=== PATIENT | female | born 1990 | race Caucasian/White ===

== ENCOUNTER 2016-12-25 11:04 | Emergency (ER) | payer MEDICAID ==
[2016-12-25 11:13] VITALS: TEMP 98.2
--- NOTE | 2016-12-25 11:22 | EDPHY ---
H & P Stated Complaint: uti symptoms/hematuria HPI/ROS: CHIEF COMPLAINT: Urinary tract infection, hematuria HISTORY OF PRESENT ILLNESS: Patient complains of recurrent urinary tract infection. She has had symptoms since this morning. This involved dysuria and frequent urination. She has seen some flecks of blood in the urine. This is similar to her recent, recurrent urinary tract infections. No flank pain. No nausea or vomiting. No fever or chills. No abdominal pain. No vaginal discharge. No pelvic pain. She did recently finish her menstrual cycle. She has had recurrent UTIs with the past year but has not yet seen the urologist. No other associated complaints or modifying factors. REVIEW OF SYSTEMS: Ten systems reviewed and are negative unless otherwise noted in the HPI PAST MEDICAL HISTORY: Recurrent UTIs SOCIAL HISTORY: Nonsmoker. 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 No wheezing or rhonchi or crackles Cardiovascular: Regular rate and rhythm. No murmur. Gastrointestinal: Abdomen is soft and nontender. No CVA tenderness. No distention, rigidity or guarding. Benign abdominal examination. Back: non-tender, no bony abnormalities Neurological: A&O, nonfocal, normal gait Skin: Warm and dry, no rash Extremities: Nontender, no pedal edema Psychiatric: Mood and affect normal DIFFERENTIAL DIAGNOSES: Including but not limited to UTI, pyelonephritis, renal colic, hematuria, nephrolithiasis, cystitis, urethritis MDM: 11:40 a.m. Acute urinary tract infection without any evidence of pyelonephritis or renal colic. Vital signs are within normal limits. Treat with Macrobid and I provided prescription for Diflucan as she does report antibiotic associated yeast infections. Referred back to primary care physician, and I recommend that she see a urologist due to the recurrent UTIs. She is comfortable with this plan. We discussed return to the emergency department cautions. She is discharged home stable condition. SUPERVISION: This patient was independently evaluated without direct examination by the attending physician. Case was discussed with attending physician. Source: Patient Exam Limitations: No limitations - Personal History LMP (Females 10-55): 1-7 Days Ago Current Tetanus/Diphtheria Vaccine: Yes - Medical/Surgical History Hx Asthma: No Hx Chronic Respiratory Disease: No Hx Diabetes: No Hx Cardiac Disease: No Hx Renal Disease: No Hx Cirrhosis: No Hx Alcoholism: No Hx HIV/AIDS: No Hx Splenectomy or Spleen Trauma: No Other PMH: freq uti/lymes disease - Social History Smoking Status: Former smoker Constitutional: Initial Vital Signs Temperature (C) 98.2 F 12/25/16 11:10 Heart Rate 81 12/25/16 11:10 Respiratory Rate 16 12/25/16 11:10 Blood Pressure 113/83 H 12/25/16 11:10 O2 Sat (%) 95 12/25/16 11:10 O2 Delivery Mode Room Air Allergies/Adverse Reactions: No Known Allergies Allergy (Unverified 12/25/16 11:10) Home Medications: Medication Instructions Recorded Chateal-28 Tablet 12/25/16 Fluconazole [Diflucan (*)] 150 mg PO ONCE #2 tab 12/25/16 Nitrofurantoin Monohyd/M-Cryst 100 mg PO BID #10 capsule 12/25/16 [Macrobid 100 mg Capsule] Medical Decision Making - Data Points Laboratory Results: 12/25/16 11:15 Urine Color PALE YELLOW Urine Appearance HAZY Urine pH 7.0 (5.0-7.5) Ur Specific Benedict < 1.001 L (1.002-1.030) Urine Protein NEGATIVE (NEGATIVE) Urine Ketones NEGATIVE (NEGATIVE) Urine Blood 3+ H (NEGATIVE) Urine Nitrate NEGATIVE (NEGATIVE) Urine Bilirubin NEGATIVE (NEGATIVE) Urine Urobilinogen NEGATIVE EU EU (0.2-1.0) Ur Leukocyte Esterase 3+ H (NEGATIVE) Urine RBC Pending Urine WBC Pending Ur Epithelial Cells Pending Urine Glucose NEGATIVE (NEGATIVE) Departure - Departure Disposition: Home, Routine, Self-Care Clinical Impression: Urinary tract infection Qualifiers: Urinary tract infection type: acute cystitis Hematuria presence: with hematuria Qualified Code(s): N30.01 - Acute cystitis with hematuria Condition: Good Instructions: Urinary Tract Infection in Women (ED) Additional Instructions: 1. Follow up with primary care physician 2. Follow up with Urology due to recurrent UTIs 3. Return here for any worsening pain, flank pain, nausea vomiting, fever Referrals: DIANA MELTON [Other] - As per Instructions Nicolás Sparrow MD [Medical Doctor] - As per Instructions Prescriptions: Fluconazole [Diflucan (*)] 150 mg PO ONCE #2 tab Nitrofurantoin Monohyd/M-Cryst [Macrobid 100 mg Capsule] 100 mg PO BID #10 capsule
[2016-12-25 11:35] LABS: COLOR PALE YELLOW; LEUKOCYTE ESTERASE,URINE 3+ (NEGATIVE); NITRITE,URINE NEGATIVE (NEGATIVE)
[2016-12-25] MEDS ORDERED: IBUPROFEN 600 MG TAB PO ONE (11:40)
[2016-12-25 11:53] LABS: MUCUS TRACE /lpf (NONE-1+); WBC,URINE 25-50 /hpf (0-3)
[2016-12-25 12:22] VITALS: BP 125/79; PULSE 77; RESP 18; O2SAT 99
== END 2016-12-25 12:00 | disposition home or self-care (01) ==
DX: N30.01 Acute cystitis with hematuria (principal); B96.89 Other specified bacterial agents as the cause of diseases classified elsewhere; Z87.891 Personal history of nicotine dependence

== ENCOUNTER 2017-02-12 19:44 | Emergency (ER) | payer MEDICAID ==
[2017-02-12 20:07] VITALS: TEMP 97.3
[2017-02-12] MEDS ORDERED: NS 1,000 ML IV ONE (20:07)
[2017-02-12 20:14] LABS: % IMMATURE GRANULYOCYTES 0.2 % (0.0-1.1); ABSOLUTE IMMATURE GRANULOCYTES 0.03 10^3/uL (0.00-0.10); ADD DIFF? NO; ADD MORPH? NO; ADD SCAN? NO; ATYPICAL LYMPHOCYTE FLAG 10 (0-99); FRAGMENT RBC FLAG 0 (0-99); HEMATOCRIT 44.3 % (38.0-47.0); HEMOGLOBIN 14.8 g/dL (12.6-16.3); LEFT SHIFT FLG 0 (0-99); LIPEMIA HEMOLYSIS FLAG 80 (0-99); MEAN CELL HEMOGLOBIN 30.3 pg (27.9-34.1); MEAN CELL HEMOGLOBIN CONCENTR. 33.4 g/dL (32.4-36.7); MEAN CELL VOLUME 90.6 fL (81.5-99.8); PLATELET CLUMPS FLAG 10 (0-99); PLATELET COUNT 291 10^3/uL (150-400); RED BLOOD CELL COUNT 4.89 10^6/uL (4.18-5.33); RED CELL DISTRIBUTION WIDTH 12.5 % (11.5-15.2)
--- NOTE | 2017-02-12 20:14 | CPEKG ---
Heart Rate: 79 RR Interval: 759 P-R Interval: 160 QRSD Interval: 92 QT Interval: 392 QTC Interval: 450 P Elizabeth: 71 QRS Elizabeth: 85 T Wave Elizabeth: 43 EKG Severity - NORMAL ECG - EKG Impression: SINUS RHYTHM Electronically Signed By: Meir Weiss 12-Feb-2017 20:35:31
--- NOTE | 2017-02-12 20:26 | EDPHY ---
H & P Time Seen by Provider: 02/12/17 19:49 HPI/ROS: CHIEF COMPLAINT: Syncope HISTORY OF PRESENT ILLNESS: 26-year-old female presents to the emergency department by ambulance after having syncopal episode. The patient was diagnosed with strep pharyngitis earlier this week and was started on amoxicillin. She has been taking this antibiotic as prescribed. She still continues to complain of sore throat. She had 1 beer this evening and also smoked marijuana. She had a witnessed syncopal episode by her boyfriend. She did not hit her head. No reported trauma. She has had episodes of syncope in the past. She denies chest pain or difficulty breathing. Denies any other recreational drugs. Denies . Denies abdominal pain. REVIEW OF SYSTEMS: Constitutional: No fever, no chills. Eyes: No double or blurry vision. ENT: No sore throat. Respiratory: No cough, no shortness of breath. Cardiac: No chest pain. Gastrointestinal: No abdominal pain, vomiting or diarrhea. Genitourinary: No dysuria. Musculoskeletal: No neck or back pain. Skin: No rashes. Neurological: No headache. Past Medical/Surgical History: Recently diagnosed with strep on antibiotics Social History: Single Smoking Status: Former smoker Physical Exam: General Appearance: Alert, lethargic. No visible signs of trauma to her head. Eyes: Pupils equal and round and very large, 9 mm. Extraocular motions are all intact. ENT: Mouth: Mucous membranes appear dry Respiratory: No wheezing, rhonchi, or rales, lungs are clear to auscultation. Cardiovascular: Regular rate and rhythm. Gastrointestinal: Abdomen is soft and nontender, no masses, no rebound or guarding, bowel sounds normal. Neurological: unable to determine due to lethargy. Skin: Warm and dry, no rashes. Musculoskeletal: Nontender to palpate along the cervical, thoracic or lumbar spine. Neck is supple. Extremities: Full range of motion and no peripheral edema. Psychiatric: no agitation Constitutional: Initial Vital Signs Temperature (C) 36.3 C 02/12/17 20:05 Heart Rate 86 02/12/17 20:05 Respiratory Rate 14 02/12/17 20:05 Blood Pressure 90/50 L 02/12/17 20:05 O2 Sat (%) 96 02/12/17 20:05 O2 Delivery Mode Room Air Allergies/Adverse Reactions: No Known Allergies Allergy (Unverified 12/25/16 11:10) Home Medications: Medication Instructions Recorded Chateal-28 Tablet 12/25/16 Fluconazole [Diflucan (*)] 150 mg PO ONCE #2 tab 12/25/16 Nitrofurantoin Monohyd/M-Cryst 100 mg PO BID #10 capsule 12/25/16 [Macrobid 100 mg Capsule] Medical Decision Making ED Course/Re-evaluation: 26-year-old female presents after having syncopal episode. Laboratory studies are within normal limits. Her blood sugar was slightly low at 63. She was given apple juice to drink. She ambulated without any recurring symptoms of syncope. The patient tells me that she has had syncopal episodes like this in the past. She does not think that she has seen a flatbed truck driver. The patient was referred to a flatbed truck driver. I do not think further testing is necessary in the emergency department. Her EKG is unremarkable. She is asymptomatic upon discharge is comfortable being discharged with her boyfriend. Differential Diagnosis: Syncope including but not limited to vasovagal syncope, arrhythmia, dehydration , and blood loss. - Data Points Laboratory Results: Laboratory Results 02/12/17 20:00 02/12/17 20:00 02/12/17 02/12/17 02/12/17 20:10 20:00 20:00 WBC RBC Hgb Hct MCV MCH MCHC RDW Plt Count MPV Neut % (Auto) Lymph % (Auto) Isabella % (Auto) Eos % (Auto) Baso % (Auto) Nucleat RBC Rel Count Absolute Neuts (auto) Absolute Lymphs (auto) Absolute Monos (auto) Absolute Eos (auto) Absolute Basos (auto) Absolute Nucleated RBC Immature Gran % Immature Gran # Sodium 141 mEq/L mEq/L (134-144) Potassium 4.0 mEq/L mEq/L (3.5-5.2) Chloride 105 mEq/L mEq/L (97-110) Carbon Dioxide 18 mEq/l L mEq/l (22-31) Anion Gap 18 mEq/L H mEq/L (8-16) BUN 9 mg/dL mg/dL (7-23) Creatinine 0.8 mg/dL mg/dL (0.6-1.0) Estimated GFR > 60 Glucose 63 mg/dL L mg/dL (70-100) Calcium 9.8 mg/dL mg/dL (8.5-10.4) Beta HCG, Qual NEGATIVE Monoscreen NEGATIVE (NEGATIVE) 02/12/17 20:00 WBC 12.14 10^3/uL H 10^3/uL (3.80-9.50) RBC 4.89 10^6/uL 10^6/uL (4.18-5.33) Hgb 14.8 g/dL g/dL (12.6-16.3) Hct 44.3 % % (38.0-47.0) MCV 90.6 fL fL (81.5-99.8) MCH 30.3 pg pg (27.9-34.1) MCHC 33.4 g/dL g/dL (32.4-36.7) RDW 12.5 % % (11.5-15.2) Plt Count 291 10^3/uL 10^3/uL (150-400) MPV 11.0 fL fL (8.7-11.7) Neut % (Auto) 44.7 % % (39.3-74.2) Lymph % (Auto) 46.7 % H % (15.0-45.0) Isabella % (Auto) 6.8 % % (4.5-13.0) Eos % (Auto) 1.2 % % (0.6-7.6) Baso % (Auto) 0.4 % % (0.3-1.7) Nucleat RBC Rel Count 0.0 % % (0.0-0.2) Absolute Neuts (auto) 5.41 10^3/uL 10^3/uL (1.70-6.50) Absolute Lymphs (auto) 5.67 10^3/uL H 10^3/uL (1.00-3.00) Absolute Monos (auto) 0.83 10^3/uL H 10^3/uL (0.30-0.80) Absolute Eos (auto) 0.15 10^3/uL 10^3/uL (0.03-0.40) Absolute Basos (auto) 0.05 10^3/uL 10^3/uL (0.02-0.10) Absolute Nucleated RBC 0.00 10^3/uL 10^3/uL (0-0.01) Immature Gran % 0.2 % % (0.0-1.1) Immature Gran # 0.03 10^3/uL 10^3/uL (0.00-0.10) Sodium Potassium Chloride Carbon Dioxide Anion Gap BUN Creatinine Estimated GFR Glucose Calcium Beta HCG, Qual Monoscreen Medications Given: Discontinued Medications Sodium Chloride (Ns) 1,000 mls @ 0 mls/hr IV EDNOW ONE; Wide Open PRN Reason: Protocol Stop: 02/12/17 20:08 Last Admin: 02/12/17 20:19 Dose: 1,000 mls Departure - Departure Disposition: Home, Routine, Self-Care Clinical Impression: Syncope Qualifiers: Syncope type: unspecified Qualified Code(s): R55 - Syncope and collapse Condition: Good Instructions: Syncope (ED) Additional Instructions: Call to arrange follow-up appointment with flatbed truck driver. Return to the emergency department if you develop recurring episodes of passing out or if you have any other concerns. Referrals: Danny Dove MD [Medical Doctor] - 2-3 days, call for appt. ([employer] Manager on- call)
[2017-02-12 20:58] LABS: ANION GAP 18 mEq/L (8-16); CALCIUM 9.8 mg/dL (8.5-10.4); CARBON DIOXIDE 18 mEq/l (22-31); CHLORIDE 105 mEq/L (97-110); CREATININE 0.8 mg/dL (0.6-1.0); GLOMERULAR FILTRATION RATE > 60; GLUCOSE 63 mg/dL (70-100); SODIUM 141 mEq/L (134-144)
[2017-02-12 21:32] VITALS: RESP 16
[2017-02-12 22:35] VITALS: BP 116/70; PULSE 69; O2SAT 98
== END 2017-02-12 22:35 | disposition home or self-care (01) ==
LOC: EDUNIT#
PROC: 3E0337Z Introduction of Electrolytic and Water Balance Substance into Peripheral Vein, Percutaneous Approach (ICD-10-PCS; principal; 2017-02-12)
DX: R55 Syncope and collapse (principal); E86.9 Volume depletion, unspecified; Z87.891 Personal history of nicotine dependence